=== PATIENT | female | born 1970 | race Caucasian/White ===

== ENCOUNTER 2017-06-11 05:54 | Emergency (ER) | payer OTHER ==
[~2017-06-11] VITALS: Ht 165.1 cm; Wt 82.5 kg
[~2017-06-11 05:54] MED LIST: ACETAMINOPHEN325 M1 PO; ALLEGRA ALLERG180 MG PO; DOC-Q-LACE100 MG PO; FIORINAL 50-321 EACH PO; IBUPROFEN800 MG PO; MAXALT MLT10 MG; MAXALT MLT5 MG PO; NORCO 5-325 TA1 EACH PO; OXYCODONE HCL10 MG PO; VALIUM5 MG PO; ZOFRAN ODT4 MG PO; ZOFRAN ODT8 MG PO
== END 2017-06-11 07:03 | disposition home or self-care (01) ==
LOC: ED 05:54
DX: G43.109 Migraine with aura, not intractable, without status migrainosus (principal); Z88.0 Allergy status to penicillin; Z88.8 Allergy status to other drugs, medicaments and biological substances; Z79.899 Other long term (current) drug therapy
CPT/HCPCS: 96374; 96375; 99282; J1200; J1885; J2405; J2765; J3030; J7030

== ENCOUNTER 2022-12-07 10:41 | Emergency (ER) | payer OTHER ==
[~2022-12-07] VITALS: Ht 165.1 cm; Wt 76.7 kg
--- OUTSIDE RECORDS SUMMARY | ~2022-12-07 | XMS | Continuity of Care Document ---
Demographics + + + | Address | [address] | | | [place] [address] | + + + | Preferred Language | Unknown | + + + | Marital Status | | + + + | Jew Affiliation | Unknown | + + + | Race | White | + + + | Ethnic Group | Unknown | + + + Author + + + | Author | [facility] | + + + | Organization | [facility] | + + + | Address | [address] | | | [place] [address] | + + + | Phone | | + + + Care Team Providers + + + + | Care Farmworkers Name | Role | Phone | + + + + Unavailable | Unavailable | + + + + Allergies No information. Encounters No information. Functional Status No information. Immunizations No information. Medications No information. Problems + + + + | date | description | facility | + + + + | 2022-11-27 16:17 | [facility]URY OF RIGHT | [facility] | | | SHOULDER AND UPPER ARM, | | | | INIT ENCNTR | | + + + + Procedures No information. Results/Labs No information. Social History No information. Vital Signs No information."
--- OUTSIDE RECORDS SUMMARY | ~2022-12-07 | XMS | Continuity of Care Document ---
Demographics + + + | Address | [address] | | | [place] [address] | + + + | Preferred Language | Unknown | + + + | Marital Status | | + + + | Buddhist Affiliation | Unknown | + + + | Race | White | + + + | Ethnic Group | Unknown | + + + Author + + + | Author | [facility] | + + + | Organization | [facility] | + + + | Address | [address] | | | [place] [address] | + + + | Phone | | + + + Care Team Providers + + + + | Care Saddle Stitch Operator Name | Role | Phone | + [...]
[2022-12-07] MEDS ORDERED: ESTRADIOL1 EAC5 TD (11:25)
[2022-12-07] MEDS ORDERED: ONDANSETRON ODT8 MG PO (12:31)
[2022-12-07] MEDS ORDERED: HYDROCODON-ACE1 EA11 PO (12:31)
[2022-12-07 12:50] VITALS: BP 112/76
== END 2022-12-07 12:50 | disposition home or self-care (01) ==
LOC: ED 10:41
DX: S90.121A Contusion of right lesser toe(s) without damage to nail, initial encounter (principal); W22.09XA Striking against other stationary object, initial encounter; Z88.0 Allergy status to penicillin; Z88.5 Allergy status to narcotic agent; Z79.899 Other long term (current) drug therapy
CPT/HCPCS: 73630; 99283-25